=== PATIENT | male | born 1985 | race Caucasian/White ===

== ENCOUNTER 2018-06-07 01:15 | Inpatient (IN) | payer SELFPAY ==
[~2018-06-07] VITALS: Ht 177.8 cm; Wt 83.2 kg
[2018-06-07] MEDS ORDERED: LACTATED RINGERS 1,000 ML IV ONE ×2 (01:44→02:45)
[2018-06-07] MEDS ORDERED: KETOROLAC 30 MG/ML VIAL IVP STA (01:44)
[2018-06-07] MEDS ORDERED: PANTOPRAZOLE 40 MG (PROTONIX) VIAL IV STA (01:44)
[2018-06-07] MEDS ORDERED: HYOSCYAMINE 0.125 MG (LEVSIN) TAB SL ONE (01:45)
[2018-06-07] MEDS ORDERED: ONDANSETRON 4 MG/2 ML (SDV) Z0FRAN IVP ONE (01:45)
[2018-06-07 01:54] LABS: BASOPHILS % (AUTO) 0 % (0-10); EOSINOPHILS # (AUTO) 0.1 10^3/uL (0.0-0.3); EOSINOPHILS % (AUTO) 1 % (0-10); HEMATOCRIT 43 % (40-54); HEMOGLOBIN 15.8 G/DL (13.3-17.7); LYMPHOCYTES # (AUTO) 2.4 X 10^3 (1.0-4.0); LYMPHOCYTES % (AUTO) 20 % (12-44); MEAN CORPUSCULAR HEMOGLOBIN 30 PG (25-34); MEAN CORPUSCULAR HGB CONC 37 G/DL (32-36); MEAN CORPUSCULAR VOLUME 82 FL (80-99); MEAN PLATELET VOLUME 11.5 FL (7.4-10.4); MONOCYTES # (AUTO) 0.7 X 10^3 (0.0-1.0); MONOCYTES % (AUTO) 6 % (0-12); NEUTROPHILS # (AUTO) 8.6 X 10^3 (1.8-7.8); NEUTROPHILS % (AUTO) 72 % (42-75); PLATELET COUNT 181 10^3/uL (130-400); RED BLOOD COUNT 5.23 10^6/uL (4.35-5.85); RED CELL DISTRIBUTION WIDTH 13.2 % (10.0-14.5); WHITE BLOOD COUNT 11.9 10^3/uL (4.3-11.0)
[2018-06-07 02:12] LABS: ALANINE AMINOTRANSFERASE 82 U/L (0-55); ALBUMIN 4.7 GM/DL (3.2-4.5); ALKALINE PHOSPHATASE 73 U/L (40-136); AMYLASE 61 U/L (25-125); BUN/CREATININE RATIO 16; CALCIUM 9.9 MG/DL (8.5-10.1); CARBON DIOXIDE 21 MMOL/L (21-32); CHLORIDE 106 MMOL/L (98-107); CREATININE SERUM 1.11 MG/DL (0.60-1.30); GFR ESTIMATED > 60; GLUCOSE 166 MG/DL (70-105); LIPASE 40 U/L (8-78); POTASSIUM 3.1 MMOL/L (3.6-5.0); SODIUM 143 MMOL/L (135-145); TOTAL PROTEIN 7.7 GM/DL (6.4-8.2)
[2018-06-07] MEDS ORDERED: NS 250 ML (IVPB) BAG IV ONE (03:00)
[2018-06-07] MEDS ORDERED: IOHEXOL 350 MG/ML 100 ML (OMNIPAQUE 350) VIAL IV ONE (03:00)
[2018-06-07] MEDS ORDERED: CIPROFLOXACIN IV 400MG/200ML 200 ML IV ONE (04:00)
[2018-06-07 04:26] LABS: BILIRUBIN,URINE NEGATIVE (NEGATIVE); CLARITY,URINE CLEAR; COLOR,URINE YELLOW; GLUCOSE, URINE (UA) 1+ (NEGATIVE); KETONES,URINE 1+ (NEGATIVE); LEUKOCYTE ESTERASE ,URINE NEGATIVE (NEGATIVE); NITRITE,URINE NEGATIVE (NEGATIVE); PH,URINE 8 (5-9); PROTEIN,URINE NEGATIVE (NEGATIVE); UROBILINOGEN,URINE NORMAL (NORMAL)
[2018-06-07 04:32] LABS: AMORPHOUS SEDIMENT,UR FEW AMOR PHOSPHATE /LPF; BACTERIA,URINE NEGATIVE /HPF; WBC,URINE RARE /HPF
[2018-06-07 04:39] LABS: AMPHETAMINE SCREEN, URINE NEGATIVE (NEGATIVE); BARBITURATE SCREEN URINE NEGATIVE (NEGATIVE); BENZODIAZEPINES SCREEN URINE NEGATIVE (NEGATIVE); CANNABINOID SCREEN, URINE NEGATIVE (NEGATIVE); COCAINE SCREEN URINE NEGATIVE (NEGATIVE); METHADONE STAT NEGATIVE (NEGATIVE); METHAMPHETAMINE SCREEN URINE S NEGATIVE (NEGATIVE); OPIATE SCREEN URINE NEGATIVE (NEGATIVE); OXYCODONE STAT NEGATIVE (NEGATIVE); PROPOXYPHENE STAT NEGATIVE (NEGATIVE); TRICYCLIC ANTIDEPRESSANTS SCRE NEGATIVE (NEGATIVE)
[2018-06-07] MEDS ORDERED: HYOSCYAMINE 0.125 MG (LEVSIN) TAB SL PRN (05:00)
[2018-06-07] MEDS ORDERED: ONDANSETRON 4 MG/2 ML (SDV) Z0FRAN IV PRN (05:00)
[2018-06-07] MEDS ORDERED: CATHETER FLUSH 10 ML SYR IV PRN (05:00)
[2018-06-07] MEDS ORDERED: fentaNYL INJECTION 100 MCG/2 ML AMP IV PRN (05:00)
[2018-06-07] MEDS ORDERED: KETOROLAC 30 MG/ML VIAL IV PRN (05:00)
[2018-06-07] MEDS: CATHETER FLUSH 10 ML SYR IV SCH ×3 (05:25→22:22)
[2018-06-07] MEDS: metroNIDAZOLE 500 MG/100 ML IVPB (PRE-MIX) IV SCH ×4 (05:25→22:26)
[2018-06-07] MEDS: D5 1/2 NS W/KCL 20 MEQ/L 1,000 ML IV SCH ×4 (05:25→23:46)
--- NOTE | 2018-06-07 05:59 | ED Abdominal Pain ---
General Chief Complaint: Abdominal/GI Problems Stated Complaint: COLITIS,RUQ & EPIGASTRIC PAIN Nursing Triage Note: Patient advises epigastric pain that began approximately 1 hour after eating a fried meal. Pt. advises nausea and vomiting x 1. Sepsis Screen: No Definite Risk Source of Information: Patient Exam Limitations: No Limitations History of Present Illness Date Seen by Provider: Jun 07, 2018 Time Seen by Provider: 01:35 Initial Comments PT ARRIVES VIA POV FROM WORK AT [employer] C/O SEVERE EPIGASTRIC PAIN X 1 HOUR C/O NAUSEA AND VOMITING X 2 NO DIARRHEA OR CONSTIPATION. NORMAL BM TODAY NO URINARY SYMPTOMS NO FEVER NO RADIATION OF PAIN NOTHING WORSENS OR IMPROVES PAIN HAS NOT TAKEN ANYTHING FOR PAIN NO HISTORY OF SIMILAR PT HAD EATEN AN HOUR PRIOR TO ONSET OF SYMPTOMS--FRIED CHICKEN AND PASTA NO SICK CONTACTS OR SUSPICIOUS FOODS NO PCP Allergies and Home Medications Allergies Coded Allergies: No Known Drug Allergies (Unverified , 06/07/18) Patient Home Medication List Home Medication List Reviewed: Yes Review of Systems Review of Systems Constitutional: no symptoms reported Respiratory: No Symptoms Reported Cardiovascular: No Symptoms Reported Gastrointestinal: See HPI, Abdominal Pain; Denies Constipated, Denies Diarrhea ; Nausea, Vomiting Genitourinary: No Symptoms Reported Musculoskeletal: no symptoms reported Skin: no symptoms reported Psychiatric/Neurological: No Symptoms Reported Endocrine: No Symptoms Reported Hematologic/Lymphatic: No Symptoms Reported Past Vsjrskb-Zbzyaw-Gjnjzo Hx Patient Social History Alcohol Use: Rarely Uses Recreational Drug Use: No Smoking Status: Never a Smoker Recent Foreign Travel: No Contact w/Someone Who Travel: No Recent Infectious Disease Expo: No Recent Hopitalizations: No Physical Abuse: No Sexual Abuse: No Past Medical History Surgeries: No Respiratory: No Cardiac: No Neurological: No Reproductive Disorders: No Genitourinary: No Gastrointestinal: No Musculoskeletal: No Endocrine: No HEENT: No Cancer: No Psychosocial: No Nursing Suicide Risk Score: 0 Integumentary: No Blood Disorders: No Physical Exam Vital Signs Vital Signs - First Documented 06/07/18 01:49 Temp 97.9 Pulse 68 Resp 14 B/P (MAP) 139/85 (103) Pulse Ox 98 O2 Delivery Room Air Capillary Refill : Less Than 3 Seconds Height/Weight/BMI Height: 5'10.00" Weight: 185lbs. oz. 83.852227wk; BMI Method:Stated General Appearance: WD/WN, other (LOOKS UNCOMFORTABLE, HOLDING EPIGASTRIC AREA AND PACING) HEENT: PERRL/EOMI Neck: normal inspection Respiratory: normal breath sounds, no respiratory distress, no accessory muscle use Cardiovascular: no murmur, tachycardia (MILD) Gastrointestinal: normal bowel sounds, soft, no organomegaly, no pulsatile mass ; No distended; guarding; No rebound; tenderness (MODERATE EPIGASTRIC AND RUQ TENDERNESS. 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, no motor/sensory deficits, alert, oriented x 3 Skin: warm/dry, pallor (PT IS ) Progress/Results/Core Measures Results/Orders Lab Results Laboratory Tests Test 06/07/18 01:49 Range/Units White Blood Count 11.9 H 4.3-11.0 10^3/uL Red Blood Count 5.23 4.35-5.85 10^6/uL Hemoglobin 15.8 13.3-17.7 G/DL Hematocrit 43 40-54 % Mean Corpuscular Volume 82 80-99 FL Mean Corpuscular Hemoglobin 30 25-34 PG Mean Corpuscular Hemoglobin Concent 37 H 32-36 G/DL Red Cell Distribution Width 13.2 10.0-14.5 % Platelet Count 181 130-400 10^3/uL Mean Platelet Volume 11.5 H 7.4-10.4 FL Neutrophils (%) (Auto) 72 42-75 % Lymphocytes (%) (Auto) 20 12-44 % Monocytes (%) (Auto) 6 0-12 % Eosinophils (%) (Auto) 1 0-10 % Basophils (%) (Auto) 0 0-10 % Neutrophils # (Auto) 8.6 H 1.8-7.8 X 10^3 Lymphocytes # (Auto) 2.4 1.0-4.0 X 10^3 Monocytes # (Auto) 0.7 0.0-1.0 X 10^3 Eosinophils # (Auto) 0.1 0.0-0.3 10^3/uL Basophils # (Auto) 0.0 0.0-0.1 10^3/uL Sodium Level 143 135-145 MMOL/L Potassium Level 3.1 L 3.6-5.0 MMOL/L Chloride Level 106 98-107 MMOL/L Carbon Dioxide Level 21 21-32 MMOL/L Anion Gap 16 H 5-14 MMOL/L Blood Urea Nitrogen 18 7-18 MG/DL Creatinine 1.11 0.60-1.30 MG/DL Estimat Glomerular Filtration Rate > 60 BUN/Creatinine Ratio 16 Glucose Level 166 H 70-105 MG/DL Calcium Level 9.9 8.5-10.1 MG/DL Corrected Calcium 8.5-10.1 MG/DL Total Bilirubin 1.0 0.1-1.0 MG/DL Aspartate Amino Transf (AST/SGOT) 100 H 5-34 U/L Alanine Aminotransferase (ALT/SGPT) 82 H 0-55 U/L Alkaline Phosphatase 73 40-136 U/L Total Protein 7.7 6.4-8.2 GM/DL Albumin 4.7 H 3.2-4.5 GM/DL Amylase Level 61 25-125 U/L Lipase 40 8-78 U/L Serum Alcohol < 10 <10 MG/DL My Orders Orders - ANDREI REARDON K DO Alcohol (06/07/18 01:34) Amylase (06/07/18 01:34) Cbc With Automated Diff (06/07/18 01:34) Comprehensive Metabolic Panel (06/07/18 01:34) Lipase (06/07/18 01:34) Ua Culture If Indicated (06/07/18 01:34) Saline Lock/Iv-Start (06/07/18 01:34) Drug Screen Stat (Urine) (06/07/18 01:34) Ketorolac Injection (Toradol Injection) (06/07/18 01:44) Ondansetron Injection (Zofran Injectio (06/07/18 01:45) Hyoscyamine Sl Tablet (Levsin Sl Tablet) (06/07/18 01:45) Saline Lock/Iv-Start (06/07/18 01:44) Lactated Ringers (Lr 1000 Ml Iv Solution (06/07/18 01:44) Pantoprazole Injection (Protonix Injecti (06/07/18 01:44) Ct Abdomen/Pelvis W (06/07/18 02:16) Acute Abd Series (06/07/18 02:16) Saline Lock/Iv-Start (06/07/18 02:45) Lactated Ringers (Lr 1000 Ml Iv Solution (06/07/18 02:45) Iohexol Injection (Omnipaque 350 Mg/Ml 1 (06/07/18 03:00) Ns (Ivpb) (Sodium Chloride 0.9%) (06/07/18 03:00) Medications Given in ED Current Medications Medications Dose Ordered Sig/Rashawn Route Start Time Stop Time Status Last Admin Dose Admin Hyoscyamine Sulfate 0.125 mg ONCE ONCE SL 06/07/18 01:45 06/07/18 01:46 DC 06/07/18 01:56 0.125 MG Iohexol 100 ml ONCE ONCE IV 06/07/18 03:00 06/07/18 03:01 DC 06/07/18 02:56 100 ML Lactated Ringer's 1,000 ml @ 0 mls/hr Q0M ONCE IV 06/07/18 01:44 06/07/18 01:46 DC 06/07/18 01:55 0 MLS/HR Lactated Ringer's 1,000 ml @ 0 mls/hr Q0M ONCE IV 06/07/18 02:45 06/07/18 02:46 DC 06/07/18 03:55 0 MLS/HR Ondansetron HCl 4 mg ONCE ONCE IVP 06/07/18 01:45 06/07/18 01:46 DC 06/07/18 01:56 4 MG Sodium Chloride 250 ml ONCE ONCE IV 06/07/18 03:00 06/07/18 03:01 DC 06/07/18 02:56 80 ML Vital Signs/I&O 06/07/18 01:49 Temp 97.9 Pulse 68 Resp 14 B/P (MAP) 139/85 (103) Pulse Ox 98 O2 Delivery Room Air Blood Pressure Mean: 103 Progress Progress Note : Progress Note PAIN AND NAUSEA MUCH IMPROVED WITH MEDICATIONS. Diagnostic Imaging Comments ACUTE ABDOMEN XRAYS--NO ACUTE PROCESS, PENDING RADIOLOGIST REVIEW CT ABDOMEN/PELVIS--COLITIS FROM TRANSVERSE COLON, TO DESCENDING COLON, TO SIGMOID COLON. NO OBSTRUCTION OR OTHER ACUTE ABNORMALITIES PER [facility] VIA FAX AT [id number] Reviewed: Reviewed by Me Departure Communication (Admissions) [id number]--SPOKE WITH DR. RAND--HE WILL SEE PT IN CONSULT. HE ADVISES CIPRO + FLAGYL , CLEAR LIQUIDS. ADVISES TO ADMIT TO HOSPITALIST [id number]--SPOKE WITH DR. DAN, ACCEPTS PT FOR ADMIT. Impression Primary Impression: Colitis Additional Impressions: EPIGASTRIC AND RUQ ABDOMINAL PAIN Elevated liver enzymes Disposition: ADMITTED INPATIENT Condition: Improved Admissions Decision to Admit Reason: Admit from ER (General) Decision to Admit/Date: Jun 07, 2018 Time/Decision to Admit Time: 03:50 Departure-Patient Inst. Referrals: NO,LOCAL PHYSICIAN (PCP) Primary Care Physician ANDREI REARDON DO Jun 07, 2018 05:59
--- NOTE | 2018-06-07 07:05 | Diagnostic Imaging Report ---
INDICATION: Upper abdominal pain with nausea and vomiting. TECHNIQUE: Single view chest with supine and upright radiographs of the abdomen. CORRELATION STUDY: None FINDINGS: Frontal radiograph of the chest demonstrates no acute abnormality. Supine and upright radiographs of the abdomen demonstrates the bowel gas pattern to be unremarkable and without evidence for obstruction. No free air is seen under the diaphragms. Mild severity proximal colon fecal retention. Stomach appears be distended with retained gastric contents. No pathologic intraabdominal calcifications. IMPRESSION: 1. Negative for acute cardiopulmonary abnormality. 2. Unremarkable appearing bowel gas pattern. Dictated by: Dictated on workstation # [id number]
--- NOTE | 2018-06-07 07:08 | Diagnostic Imaging Report ---
PROCEDURE: CT abdomen and pelvis with contrast. TECHNIQUE: Multiple contiguous axial images were obtained through the abdomen and pelvis after administration of intravenous contrast. INDICATION: Upper abdominal pain with nausea and vomiting. CORRELATION STUDY: None. FINDINGS: LOWER THORAX: Clear. LIVER: Unremarkable. GALLBLADDER: Present and unremarkable. No bile duct dilatation. SPLEEN: Borderline in size. PANCREAS: Unremarkable. ADRENAL GLANDS: Unremarkable. KIDNEYS: Normal configuration. No calcification or obstruction. ABDOMINAL AORTA: Unremarkable, nonaneurysmal. GASTROINTESTINAL TRACT: Stomach is distended with retained gastric contents. No evidence for small bowel distention. A few fluid-filled loops of small bowel and slight hyperemia suggested in the pelvis. There is an abrupt transition from stool filled thin-walled colon to nondistended colon with mucosal edema at the hepatic flexure involving the transverse colon extending through the rectosigmoid colon. A few sigmoid diverticula are present without evidence for acute diverticulitis. Normal appendix present. No abdominal ascites or free air. URINARY BLADDER: Unremarkable. REPRODUCTIVE: Prostate gland is pretty be very mild prominent. OSSEOUS STRUCTURES: No acute abnormality. OTHER: None. IMPRESSION: 1. Findings favor likely colitis involving the transverse, descending and sigmoid colon. No evidence for obstruction. Agreement with the preliminary interpretation. Dictated by: Dictated on workstation # [id number]
[2018-06-07 07:11] LABS: AMYLASE 56 U/L (25-125); LIPASE 45 U/L (8-78)
[2018-06-07 08:00] VITALS: BP 132/72
[2018-06-07] MEDS: PANTOPRAZOLE 40 MG (PROTONIX) VIAL IV SCH (09:41)
--- NOTE | 2018-06-07 11:13 | History & Physical-Hospitalist ---
History of Present Illness HPI/Chief Complaint Pt is a 33yoHM who presented to the ER with CC of severe abd pain. He states that he was at work and has eaten fried chicken and pasta just before the symptoms started. He describes the location as all over but more severe in right upper quadrant. Just prior to arrival he developed nausea and vomiting but that has since subsided. He states he is feeling well today and pain is well controlled. He denies any diarrhea or constipation. He has no previous episodes of similar occurrences. Source: patient Date Seen 06/07/18 Time Seen by Provider: 11:11 Attending Physician Kareem Valladares MD PCP No,Local Physician Referring Physician Date of Admission Jun 07, 2018 at 03:50 Home Medications & Allergies Home Medications Reviewed patient Home Medication Reconciliation performed by pharmacy medication reconciliations food safety technician and/or nursing. Patients Allergies have been reviewed. Allergies Allergies Coded Allergies No Known Drug Allergies (Unverified06/07/18) Past Mcyxaqs-Vtqpjw-Rckofq Hx Past Med/Social Hx: Reviewed and Corrections made Patient Social History Alcohol Use: Rarely Uses Number of Drinks Today: 0 Recreational Drug Use: No Smoking Status: Never a Smoker Physical Abuse Screen: No Sexual Abuse: No Recent Foreign Travel: No Contact w/other who traveled: No Recent Hopitalizations: No Recent Infectious Disease Expo: No Seasonal Allergies Seasonal Allergies: No Past Medical History Currently Using CPAP: No Currently Using BIPAP: No Reproductive: No Loss of Vision: Denies History of Blood Disorders: No Family History Cardiovascular disease 19 FATHER Kidney stone 19 MOTHER Myocardial infarction 19 FATHER CAD Under 55 Years Old ([place] at 55yo- dad) Review of Systems Constitutional: No chills, No fever EENTM: No blurred vision, No double vision, No nose congestion, No throat pain Respiratory: No cough, No dyspnea on exertion, No short of breath Cardiovascular: No chest pain, No edema, No palpitations Gastrointestinal: see HPI Genitourinary: No dysuria, No frequency Musculoskeletal: No joint pain, No muscle pain Skin: No lesions, No rash Psychiatric/Neurological: Denies Headache, Denies Numbness, Denies Tingling Physical Exam Physical Exam Vital Signs Vital Signs - First Documented 06/07/18 01:49 Temp 97.9 Pulse 68 Resp 14 B/P (MAP) 139/85 (103) Pulse Ox 98 O2 Delivery Room Air Capillary Refill : Less Than 3 Seconds Height, Weight, BMI Height: 5'10.00" Weight: 183lbs. 6.0oz. 83.754248xc; 26.3 BMI Method:Stated General Appearance: No Apparent Distress, WD/WN HEENT: PERRL/EOMI, Moist Mucous Membranes Neck: Non Tender, Supple Respiratory: Lungs Clear, No Respiratory Distress Cardiovascular: Regular Rate, Rhythm, No Murmur Gastrointestinal: Normal Bowel Sounds, Non Tender, Soft Extremity: Normal Capillary Refill, No Calf Tenderness Neurologic/Psychiatric: Alert, Oriented x3, Normal Mood/Affect Skin: Normal Color, Warm/Dry Results Results/Procedures Labs Laboratory Tests 06/07/18 01:49 06/08/18 04:40 Patient resulted labs reviewed. Imaging: Reviewed Imaging Report Assessment/Plan Admission Diagnosis Colitis Admission Status: Inpatient Order (span 2 midnights) Reason for Inpatient Admission: IV abx, will likely take two days to stablize for discharge Diagnosis/Problems Diagnosis/Problems (1) Colitis Status: Acute Assessment & Plan: Continue on Cipro and Flagyl Surgery consulted appreciate recs Pain management IVF CLD (2) Hypokalemia Status: Resolved Assessment & Plan: Replace (3) Elevated blood pressure reading Assessment & Plan: Mildly elevated Will trend (4) Elevated liver enzymes Status: Acute Assessment & Plan: Likely due to colitis Will trend Await RUQ usg Clinical Quality Measures DVT/VTE Risk/Contraindication: Risk Factor Score Per Nursin RFS Level Per Nursing on Admit: 1=Low/No VTE PPX KAREEM VALLADARES MD Jun 07, 2018 11:13
--- NOTE | 2018-06-07 11:16 | Diagnostic Imaging Report ---
INDICATION: Right upper quadrant abdominal pain. TECHNIQUE: Multiple real-time [place] scale sonographic images of the abdomen. CORRELATION STUDY: None FINDINGS: LIVER: Normal echotexture within the visualized portions of the liver. There is normal, hepatopedal direction of flow within the main portal vein. Liver size 17 cm. GALLBLADDER: Small non-shadowing echogenic foci suspect for polyp at 4 mm in size. COMMON BILE DUCT: Obscured by overlying bowel gas and not able to be visualized. PANCREAS: Largely obscured by overlying bowel gas. SPLEEN: Unremarkable. ABDOMINAL AORTA: Obscured and not visualized. INFERIOR VENA CAVA: Limited in visualization. RIGHT KIDNEY: 10.4 cm. Unremarkable. LEFT KIDNEY: 11.4 cm. Unremarkable. OTHER: None. IMPRESSION: 1. Probable small gallbladder polyp. Otherwise relatively unremarkable abdominal ultrasound evaluation. Dictated by: Dictated on workstation # [id number]
[2018-06-07 12:00] VITALS: BP 129/73
--- NOTE | 2018-06-07 12:08 | CONSULTATION REPORT ---
DATE OF SERVICE: DATE OF ADMISSION: 06/07/2018. HISTORY OF PRESENT ILLNESS: The patient is a 33-year-old male who presented early this morning to the Emergency Department with pain in the epigastric region followed by two episodes of nausea and vomiting. He stated that the day of admission, he had a bowel movement, which was normal in consistency with no diarrhea as well as no red blood per rectum nor any dark tarry stools. He does not report any fever or chills. He reports that he had a similar episode; however much less severe approximately one week ago; however, has not had previous other episodes in the past. He does not report any known family history of inflammatory bowel disease. CT scan was performed which did show an mild inflammation of the colon encompassing the transverse and descending colon consistent with a colitis. There was also a gallbladder changes with gallbladder wall thickening; however, no stones identified, which may indicate an acute on chronic acalculous cholecystitis as well. Since being admitted and placed on IV fluids he has felt much better with pain controlled and no fever, no chills and normal lab values. PAST MEDICAL HISTORY: None. PAST SURGICAL HISTORY: None. SOCIAL HISTORY: Negative smoke, negative alcohol. FAMILY HISTORY: Noncontributory. VITAL SIGNS: Temperature 97.9, blood pressure 141/89, pulse 81, respirations 14, pulse ox 98% on room air. REVIEW OF SYSTEMS: Well-nourished male currently in no acute distress. He is not experiencing shortness of breath or difficulty breathing. No chest pain, palpitations, diaphoresis. Two episodes of nausea and vomiting; however, none since admission. Had a bowel movement today, which was normal in consistency and color. No red blood per rectum, no dark tarry stools. No fever, chills, no recent inadvertent weight loss. All other review of systems negative. PHYSICAL EXAMINATION: CHEST: Clear. Good breath sounds bilaterally. HEART: Regular. No murmurs. HEENT: No scleral icterus. NECK: No cervical lymphadenopathy. ABDOMEN: Soft, nondistended. There is mild discomfort in the epigastric region upon deep palpation. No palpable masses. No peritoneal signs. ASSESSMENT AND PLAN: A 33-year-old male with a colitis of unknown etiology. This may be due to a bacterial overgrowth and low-flow states from dehydration. He does not report taking any previous antibiotics for other reasons recently. This may also encompass a new onset or undiagnosed inflammatory bowel disease. Another finding was gallbladder wall inflammation, which may indicate an acute on chronic acalculous cholecystitis. For this, we will have him follow up in the office for further monitoring and evaluation of it and if this continues to be symptomatic, we will schedule him for a laparoscopic cholecystectomy as an outpatient. Job ID: [id number] DocumentID: [id number] Dictated Date: 06/07/2018 10:46:33 Grocery Store Clerk Date: 06/07/2018 12:07:11 Dictated By: BERNARDO RAND MD
[2018-06-07 15:25] VITALS: BP 132/76
[2018-06-07] MEDS: CIPROFLOXACIN 400 MG/D5W 200 ML (PRE-MIX) IV SCH (16:29)
[2018-06-07 19:20] VITALS: BP 128/75
[2018-06-08 00:37] VITALS: BP 122/75
[2018-06-08] MEDS: CIPROFLOXACIN 400 MG/D5W 200 ML (PRE-MIX) IV SCH (03:25)
[2018-06-08] MEDS: CATHETER FLUSH 10 ML SYR IV SCH (04:29)
[2018-06-08 04:35] VITALS: BP 128/79
[2018-06-08] MEDS: metroNIDAZOLE 500 MG/100 ML IVPB (PRE-MIX) IV SCH (04:45)
[2018-06-08 05:18] LABS: BASOPHILS % (AUTO) 0 % (0-10); EOSINOPHILS # (AUTO) 0.2 10^3/uL (0.0-0.3); EOSINOPHILS % (AUTO) 3 % (0-10); HEMATOCRIT 40 % (40-54); HEMOGLOBIN 14.6 G/DL (13.3-17.7); LYMPHOCYTES # (AUTO) 1.6 X 10^3 (1.0-4.0); LYMPHOCYTES % (AUTO) 32 % (12-44); MEAN CORPUSCULAR HEMOGLOBIN 31 PG (25-34); MEAN CORPUSCULAR HGB CONC 37 G/DL (32-36); MEAN CORPUSCULAR VOLUME 84 FL (80-99); MEAN PLATELET VOLUME 11.9 FL (7.4-10.4); MONOCYTES # (AUTO) 0.5 X 10^3 (0.0-1.0); MONOCYTES % (AUTO) 10 % (0-12); NEUTROPHILS # (AUTO) 2.7 X 10^3 (1.8-7.8); NEUTROPHILS % (AUTO) 55 % (42-75); PLATELET COUNT 136 10^3/uL (130-400); RED BLOOD COUNT 4.71 10^6/uL (4.35-5.85); RED CELL DISTRIBUTION WIDTH 13.3 % (10.0-14.5); WHITE BLOOD COUNT 4.9 10^3/uL (4.3-11.0)
[2018-06-08 05:41] LABS: ALANINE AMINOTRANSFERASE 238 U/L (0-55); ALBUMIN 3.9 GM/DL (3.2-4.5); ALKALINE PHOSPHATASE 69 U/L (40-136); BILIRUBIN,TOTAL 0.7 MG/DL (0.1-1.0); BUN/CREATININE RATIO 8; CALCIUM 8.8 MG/DL (8.5-10.1); CARBON DIOXIDE 21 MMOL/L (21-32); CHLORIDE 110 MMOL/L (98-107); CREATININE SERUM 0.91 MG/DL (0.60-1.30); GFR ESTIMATED > 60; GLUCOSE 115 MG/DL (70-105); POTASSIUM 3.6 MMOL/L (3.6-5.0); SODIUM 141 MMOL/L (135-145); TOTAL PROTEIN 6.4 GM/DL (6.4-8.2)
[2018-06-08 07:25] VITALS: BP 133/73
[2018-06-08] MEDS ORDERED: CIPR-225 PO (08:50)
[2018-06-08] MEDS ORDERED: METR500T PO (08:50)
--- NOTE | 2018-06-08 08:52 | Discharge Inst-Simple/Standard ---
Discharge Inst-Standard Discharge Medications New, Converted or Re-Newed RX: Transmitted to Pharmacy Patient Instructions/Follow Up Plan of Care/Instructions/FU: Please continue to take your medications as written even if you begin to feel better. Please avoid alcohol while taking these antibiotics. Please follow up with Dr Shahid in 2-4 weeks. Activity as Tolerated: Yes Discharge Diet: Low Residue Return to The Hospital For: Worsening abd pain, inability to keep any food down, if you feel you are getting worse. KAREEM DAN MD Jun 08, 2018 08:52
--- NOTE | 2018-06-08 08:58 | Discharge Summary-Hospitalist ---
Diagnosis/Chief Complaint Date of Admission Jun 07, 2018 at 03:50 Date of Discharge Discharge Date: Jun 08, 2018 Admission Diagnosis Colitis Discharge Diagnosis (1) Colitis Status: Acute Assessment & Plan: Continue on Cipro and Flagyl as outpatient Follow up with Dr Rand in 2-4 weeks to follow up on gallbladder and colitis Low residue diet (2) Hypokalemia Status: Resolved (3) Elevated blood pressure reading Assessment & Plan: Resolved (4) Elevated liver enzymes Status: Acute Assessment & Plan: Will need to follow up with Dr Rand regarding gallbladder Discharge Summary Procedures/Consulations Dr Rand- Surgery Discharge Physical Exam Allergies: Coded Allergies: No Known Drug Allergies (Unverified , 06/07/18) Vitals & I&Os Vital Signs Date Time Temp Pulse Resp B/P (MAP) Pulse Ox O2 Delivery O2 Flow Rate FiO2 06/08/18 07:25 97.0 61 18 133/73 (93) 97 Room Air General Appearance: No Apparent Distress, WD/WN Respiratory: Lungs Clear, No Respiratory Distress Cardiovascular: Regular Rate, Rhythm, No Murmur Gastrointestinal: Normal Bowel Sounds, Non Tender, Soft; No Distended Hospital Course Pt was admitted for colitis and severe abdominal pain. He responded well to IV antibiotics and clear liquid diet. By his second day of admission his symptoms had resolved completely and he was requesting discharge home. He was sent home to complete course of antibiotics orally and to follow up with Dr Rand in 2-4 weeks. Labs (last 24 hrs) Laboratory Tests 06/08/18 04:40: White Blood Count 4.9, Red Blood Count 4.71, Hemoglobin 14.6, Hematocrit 40, Mean Corpuscular Volume 84, Mean Corpuscular Hemoglobin 31, Mean Corpuscular Hemoglobin Concent 37H, Red Cell Distribution Width 13.3, Platelet Count 136, Mean Platelet Volume 11.9H, Neutrophils (%) (Auto) 55, Lymphocytes (%) (Auto) 32 , Monocytes (%) (Auto) 10, Eosinophils (%) (Auto) 3, Basophils (%) (Auto) 0, Neutrophils # (Auto) 2.7, Lymphocytes # (Auto) 1.6, Monocytes # (Auto) 0.5, Eosinophils # (Auto) 0.2, Basophils # (Auto) 0.0, Sodium Level 141, Potassium Level 3.6, Chloride Level 110H, Carbon Dioxide Level 21, Anion Gap 10, Blood Urea Nitrogen 7, Creatinine 0.91, Estimat Glomerular Filtration Rate > 60, BUN/ Creatinine Ratio 8, Glucose Level 115H, Calcium Level 8.8, Corrected Calcium 8.9 , Total Bilirubin 0.7, Aspartate Amino Transf (AST/SGOT) 121H, Alanine Aminotransferase (ALT/SGPT) 238H, Alkaline Phosphatase 69, Total Protein 6.4, Albumin 3.9 Patient resulted labs reviewed. Pending Labs Laboratory Tests 06/08/18 04:40: White Blood Count 4.9, Red Blood Count 4.71, Hemoglobin 14.6, Hematocrit 40, Mean Corpuscular Volume 84, Mean Corpuscular Hemoglobin 31, Mean Corpuscular Hemoglobin Concent 37, Red Cell Distribution Width 13.3, Platelet Count 136, Mean Platelet Volume 11.9, Neutrophils (%) (Auto) 55, Lymphocytes (%) (Auto) 32 , Monocytes (%) (Auto) 10, Eosinophils (%) (Auto) 3, Basophils (%) (Auto) 0, Neutrophils # (Auto) 2.7, Lymphocytes # (Auto) 1.6, Monocytes # (Auto) 0.5, Eosinophils # (Auto) 0.2, Basophils # (Auto) 0.0, Sodium Level 141, Potassium Level 3.6, Chloride Level 110, Carbon Dioxide Level 21, Anion Gap 10, Blood Urea Nitrogen 7, Creatinine 0.91, Estimat Glomerular Filtration Rate > 60, BUN/ Creatinine Ratio 8, Glucose Level 115, Calcium Level 8.8, Corrected Calcium 8.9 , Total Bilirubin 0.7, Aspartate Amino Transf (AST/SGOT) 121, Alanine Aminotransferase (ALT/SGPT) 238, Alkaline Phosphatase 69, Total Protein 6.4, Albumin 3.9 Imaging: Reviewed Imaging Report Discussion & Recommendations Discharge Planning: <30 minutes discharge planning Discharge Home Medications: Active Scripts Active Flagyl (Metronidazole) 500 Mg Tablet 500 Mg PO BID Cipro (Ciprofloxacin HCl) 500 Mg Tablet 500 Mg PO BID Instructions to patient/family Please see electronic discharge instructions given to patient. Clinical Quality Measures DVT/VTE Risk/Contraindication: Risk Factor Score Per Nursin RFS Level Per Nursing on Admit: 1=Low/No VTE PPX Copy Copies To 1: BERNARDO RAND MD, KATELYN M MD Jun 08, 2018 08:58
[2018-06-08] MEDS: PANTOPRAZOLE 40 MG (PROTONIX) VIAL IV SCH (09:34)
[2018-06-08] MEDS ORDERED: NYSTATIN ORAL SUSP 5 ML UDC PO SCH (12:00)
== END 2018-06-08 10:10 | disposition home or self-care (01) | DRG 392 ==
LOC: EDUNIT# 01:15 → ER 01:19 → 4TH 03:50
PROVIDERS: ADMIT Family Medicine; ATTEND Family Medicine
DX: K52.9 Noninfective gastroenteritis and colitis, unspecified (principal); E87.6 Hypokalemia; R03.0 Elevated blood-pressure reading, without diagnosis of hypertension; R74.8 Abnormal levels of other serum enzymes
CPT/HCPCS: 36415; 74022; 74177; 76700; 80053; 80306; 80320; 81000; 82150; 83690; 85025; 96361; 96365; 96375